=== PATIENT | male | born 1970 | race Caucasian/White ===

== ENCOUNTER → 2018-01-28 15:12 | Outpatient (CLI) | payer OTHER, SELFPAY ==
--- NOTE | 2018-01-28 | DI.RAD.S_ITS ---
PROCEDURE: XR ELBOW RT 2V INDICATIONS: PAIN IN RT ELBOW TECHNIQUE: 3 views of the elbow were acquired. COMPARISON: None. FINDINGS: Bones: No fractures or dislocations. No suspicious bony lesions. Soft tissues: No elbow joint effusion. No suspicious soft tissue calcifications. IMPRESSION: Unremarkable radiographic examination of right elbow. Dictated by: Tony Buck M.D. on 01/28/2018 at 16:23 Approved by: Tony Buck M.D. on 01/28/2018 at 16:23
== END ==
PROVIDERS: PCP Family Medicine; Visit Provider Family Medicine
DX: M25.521 Pain in right elbow (principal)
CPT/HCPCS: 73070

== ENCOUNTER → 2020-09-15 11:23 | Outpatient (CLI) | payer OTHER, SELFPAY ==
[2020-09-15 13:16] LABS: COVID19 -Nasal RAPID Negative (Negative)
== END ==
PROVIDERS: PCP Student in an Organized Health Care Education/Training Program; Visit Provider Physician Assistant
DX: Z01.812 Encounter for preprocedural laboratory examination (principal); Z20.822 Contact with and (suspected) exposure to COVID-19
CPT/HCPCS: 87635

== ENCOUNTER 2020-09-17 12:32 | Day surgery (SDC) | payer OTHER, SELFPAY ==
[2020-09-17] VITALS (10 sets, daily range): BP systolic 103–118; BP diastolic 69–78; PULSE 56–76; RESP 10–16; TEMP 36.2–37; O2SAT 92–96; BMI 28.6
--- NOTE | 2020-09-17 | PATH_ITS ---
[facility] Accession Number: [id number] . 01 Material submitted: . PART A: duodenum - DUODENAL PART B: gastrointestinal site - ANTRUM PART C: gastrointestinal site - FUNDUS PART D: gastrointestinal site - BODY BIOPSY PART E: esophagus, E-G Junction - GE JUNCTION @12 OCLOCK PART F: esophagus, E-G Junction - GE JUNCTION 6 OCLOCK PART G: esophagus, E-G Junction - GE JUNCTION 9 OCLOCK PART H: esophagus, E-G Junction - GE JUNCTION 3 OCLOCK PART I: colon - TRANSVERSE COLON 2MM POLYP . 02 Diagnosis: A. Duodenum, Biopsy: Duodenal mucosa with no diagnostic abnormality. Negative for active inflammation, features of sprue, dysplasia, or malignancy. . B. Stomach, Antrum, Biopsy: Antral mucosa with no diagnostic abnormality. Negative for Helicobacter by immunohistochemistry. Negative for intestinal metaplasia. Negative for dysplasia and malignancy. . C. Stomach, Fundus, Biopsy: Body-type mucosa with no diagnostic abnormality. Negative for Helicobacter by immunohistochemistry. Negative for intestinal metaplasia. Negative for dysplasia and malignancy. . D. Stomach, Body, Biopsy: Body-type mucosa with no diagnostic abnormality. No evidence of Helicobacter on H/E stain. Negative for intestinal metaplasia. Negative for dysplasia and malignancy. . E. Gastroesophageal Junction, 12 o'clock, Biopsy: Squamous epithelium with no diagnostic abnormality. Intraepithelial eosinophils are not increased. Negative for dysplasia and malignancy. . F. Gastroesophageal Junction, 6 o'clock, Biopsy: Squamous and columnar mucosa with no diagnostic abnormality. Negative for intestinal metaplasia by alcian blue stain. Negative for dysplasia and malignancy. . G. Gastroesophageal Junction, 9 o'clock, Biopsy: Columnar mucosa with mild chronic inflammation. Negative for intestinal metaplasia by alcian blue stain. Negative for dysplasia and malignancy. . H. Gastroesophageal Junction, 3 o'clock, Biopsy: Squamous mucosa with no diagnostic abnormality. Intraepithelial eosinophils are not increased. Negative for dysplasia and malignancy. . I. Transverse Colon, Polyp 2 mm, Biopsy: Colonic mucosa with a small benign lymphoid aggregate and no other significant diagnostic abnormality. Additional levels were examined. Negative for dysplasia and malignancy. MRV 09/23/2020 1431 Local . 02 Electronically signed: . Caitie Fajardo MD, Pathologist NPI- [id number] . 01 Gross description: . Part A: DUODENAL: Received in formalin is 1 fragment(s) of schaefer, soft tissue measuring 0.4 x 0.2 x 0.1 cm submitted entirely in 1 cassette(s) Part B: ANTRUM: Received in formalin are 2 fragment(s) of schaefer, soft tissue measuring 0.4 x 0.2 x 0.1 cm to 0.3 x 0.2 x 0.1 cm submitted entirely in 1 cassette(s) Part C: FUNDUS: Received in formalin are 2 fragment(s) of schaefer, soft tissue measuring 0.5 x 0.2 x 0.1 cm to 0.3 x 0.3 x 0.2 cm submitted entirely in 1 cassette(s) Part D: BODY BIOPSY: Received in formalin is 1 fragment(s) of schaefer, soft tissue measuring 0.3 x 0.3 x 0.2 cm submitted entirely in 1 cassette(s) Part E: GE JUNCTION @12 OCLOCK: Received in formalin is 1 fragment(s) of schaefer, soft tissue measuring 0.2 x 0.2 x 0.1 cm submitted entirely in 1 cassette(s) Part F: GE JUNCTION 6 OCLOCK: Received in formalin is 1 fragment(s) of schaefer, soft tissue measuring 0.4 x 0.2 x 0.1 cm submitted entirely in 1 cassette(s) Part G: GE JUNCTION 9 OCLOCK: Received in formalin is 1 fragment(s) of schaefer, soft tissue measuring 0.3 x 0.2 x 0.1 cm submitted entirely in 1 cassette(s) Part H: GE JUNCTION 3 OCLOCK: Received in formalin is 1 fragment(s) of schaefer, soft tissue measuring 0.5 x 0.3 x 0.1 cm submitted entirely in 1 cassette(s) Part I: TRANSVERSE COLON 2MM POLYP: Received in formalin is 1 fragment(s) of schaefer, soft tissue measuring 1.0 x 0.3 x 0.1 cm submitted entirely in 1 cassette(s) /QBJ 09/18/2020 0510 Local . 02 Microscopic: . B-C: Immunohistochemical stains were performed on blocks B and C in order to evaluate for Helicobacter organisms, and are both negative. The control stain showed appropriate reactivity. . F-G: AB/PAS stains were performed on blocks F and G in order to evaluate for intestinal metaplasia, and are both negative. The control stain showed appropriate reactivity. . * This test was developed and its performance characteristics determined by [employer]. It has not been cleared or approved by the U.S. Food and Drug Administration. The FDA has determined that such clearance or approval is not necessary. This test is used for clinical purposes. It should not be regarded as investigational or for research. . 02 Pathologist provided ICD-10: R10.13 . 02 CPT . 534479, 718925, 336002, 750873, 626125, 303274, 453543, 775398, 907996, [id number], 869592, 755996 Performed at: 01 [facility] [address] [id number] MD Connor Pires MD Phone: [phone] Performed at: 02 [facility] [address] [place] [id number] MD Caitie Fajardo MD Phone: [phone]
--- NOTE | 2020-09-17 09:33 | PM.PREOP ---
Pre-operative Note COVID-19 COVID-19 status: Negative Result date/Date tested (Pos, Neg/Pending): 09/15/20 Interval Note History & Physical reviewed/Exam performed by Physician: Yes Changes to H&P: No ASA Class (for procedural sedation): II
--- NOTE | 2020-09-17 09:34 | P.OP.ENDO_ITS ---
Operative Date/Time/Diagnoses Date of procedure: 09/17/20 Procedure Notes Procedure in detail: ENDOSCOPIST: Tabitha Sky MD Sedation RN: Moisés Esteves RN Sedation start time: 3:10 p.m. Sedation end time: 3:37 p.m. PROCEDURE: EGD with biopsy INDICATIONS: 1. Abdominal pain, left lower quadrant 2. GERD MEDICATION: Incremental doses of Versed and fentanyl until an appropriate level of sedation was achieved. ASA Ratin DURATION OF PROCEDURE: 10 minutes. COMPLICATIONS: None. LIMITATIONS: None EXTENT OF PROCEDURE: Third portion of the Duodenum. PROCEDURE: The high-definition gastroduodenoscope was introduced into the posterior oropharynx under direct vision after Hurricaine spray, noted IV sedation, and proper informed consent. The esophagus was identified and intubated under direct visualization. The scope was quickly passed through the esophagus and into the fundus of the stomach. A clear fundal pool was aspirated. The scope was then advanced to the antrum and the pylorus was identified. The scope was passed through the pylorus into the second and third portions of the duodenum. No abnormalities were noted in the duodenum, duodenal bulb or pyloric channel. Random biopsies taken x2. The antrum has superficial hyperemesis, random biopsy taken x2. J maneuver was produced. No abnormalities were noted of the proximal body, fundus or cardia. No hiatal hernia was noted. Random biopsy taken x2. Scope was broken out of the J maneuver and the remainder of the stomach was carefully inspected upon withdrawal and was normal. The stomach was carefully deflated of all air on withdrawal. The distal esophagus was carefully inspected and Z-line was noted to be irregular, 4 quadrant biopsies taken. Top of the gastric folds noted at 40 cm from the incisors; circumferential extent of the metaplasia was 39 cm from the incisors; maximal ex tent of the metaplasia was 38 cm from the incisors. The remainder of the esophagus was normal upon withdrawal. The larynx and vocal cords appeared to be unremarkable. IMPRESSION: 1. Superficial hyperemesis, antrum 2. Endoscopically suspected esophageal mucosa, C1M2 PLAN: 1. Follow-up in clinic status post pathology results. The possibility of missed lesion including a malignancy was discussed prior with the patient. Potential alarm symptoms have been discussed and should be reported by the patient immediately.
--- NOTE | 2020-09-17 09:34 | PM.OP.ENDO ---
Operative Date/Time/Diagnoses Date of procedure: 09/17/20 Procedure Notes SCOAP/Timeout: 3:09 p.m. Procedure in detail: ENDOSCOPIST: Tabitha Sky MD Sedation RN: Moisés Esteves RN Sedation start time: 3:40 p.m. Sedation end time: 3:56 p.m. PROCEDURE: Colonoscopy with biopsy INDICATIONS: 1. Abdominal pain, LLQ 2. Screening for colon cancer MEDICATION: Levsin 0.125 mg sublingual, incremental doses of Versed and fentanyl until appropriate level sedation achieved. ASA CLASS: 2 CECAL WITHDRAWAL TIME: 9 minutes COMPLICATIONS: None. EXTENT OF PROCEDURE: Cecum. QUALITY OF PREP: Good with portions of liquid stool. PROCEDURE: Prior to insertion of the colonoscope, a digital rectal examination was accomplished with circumferential palpation of the distal rectal mucosa without significant findings being noted. The high-definition colonoscope was passed into the rectum in the usual fashion and advanced over to the cecum without difficulty. The ileocecal valve, appendiceal stoma, and medial wall all could be inspected and no abnormalities were seen. ASCENDING COLON: As the colonoscope was withdrawn, care was taken to expose and inspect the haustral folds and no abnormalities were seen. HEPATIC FLEXURE: Normal, no polyps, diverticula or other abnormalities. TRANSVERSE COLON: 2 mm polyp removed with cold biopsy forceps. Otherwise, normal, no diverticula or other abnormalities. DESCENDING COLON: Minor diverticulosis, otherwise, normal, no polyps or other abnormalities. SIGMOID COLON: Minor diverticulosis, otherwise, normal, no polyps or other abnormalities. RECTUM: Normal. J maneuver was produced. There was no significant perianal disease. The J maneuver was broken. The remainder of the rectum was inspected and there was no external hemorrhoid disease. The scope was withdrawn. IMPRESSION: 1. Transverse polyp x1, 2 mm, removed with cold biopsy forceps 2. Minor diverticulosis, left-sided PLAN: 1. Follow-up in clinic status post pathology results. The possibility of a missed lesion including a malignancy has been discussed with the patient previously. Potential alarm symptoms have been discussed and should be reported immediately.
[2020-09-17] MEDS: LACTATED RINGERS 1,000 ML 200 ML IV ×2 (13:14→15:05)
[2020-09-17] MEDS: HYOSCYAMINE 0.125 MG TABLET PO (13:14)
[2020-09-17] MEDS: LIDOCAINE 4% SOLN 50 ML 20 ML TOP (15:06)
[2020-09-17] MEDS: fentaNYL 250 MCG/5 ML INJ IV (15:07)
[2020-09-17] MEDS: LIDOCAINE JELLY 2% 5 ML 1 APPLIC TOP (15:07)
[2020-09-17] MEDS: MIDAZOLAM 5 MG/5 ML VIAL IV (15:08)
--- NOTE | 2020-09-17 17:17 | SUR.PHASEII ---
Pt from [facility] alert, denies pain. Ponce liquids. DC to home with after DC teaching reviewed.
== END 2020-09-17 17:09 | disposition home or self-care (01) ==
PROVIDERS: PCP Student in an Organized Health Care Education/Training Program; Referring Provider Student in an Organized Health Care Education/Training Program; Visit Provider Student in an Organized Health Care Education/Training Program
PROC: 0DJ08ZZ Inspection of Upper Intestinal Tract, Via Natural or Artificial Opening Endoscopic (ICD-10-PCS; CPT 43235; 2020-09-17 13:45)
PROC: 0DJD8ZZ Inspection of Lower Intestinal Tract, Via Natural or Artificial Opening Endoscopic (ICD-10-PCS; CPT 45378; 2020-09-17 13:45)
DX: R10.32 Left lower quadrant pain (principal); E66.9 Obesity, unspecified; E03.9 Hypothyroidism, unspecified; E78.2 Mixed hyperlipidemia; K57.30 Diverticulosis of large intestine without perforation or abscess without bleeding; K21.00 Gastro-esophageal reflux disease with esophagitis, without bleeding
CPT/HCPCS: 45380; 43239; J2250; J3010

== ENCOUNTER → 2021-03-21 12:48 | Outpatient (CLI) | payer OTHER, SELFPAY ==
--- NOTE | 2021-03-21 12:50 | DI.RAD.S_ITS ---
PROCEDURE: XR ELBOW LT MIN 3V INDICATIONS: fall TECHNIQUE: 3 views of the elbow were acquired. COMPARISON: None. FINDINGS: Bones: There is a subtle nondisplaced radial head fracture noted resulting in large joint effusion elevating the anterior humeral fat pad. Soft tissues: As above. Soft tissue swelling without foreign body. IMPRESSION: Nondisplaced radial head fracture and large joint effusion. Approved by: Anthony Cook M.D. on 03/21/2021 at 12:06
== END ==
PROVIDERS: PCP Family Medicine; Referring Provider Nurse Practitioner Family; Visit Provider Nurse Practitioner Family
DX: S52.125A Nondisplaced fracture of head of left radius, initial encounter for closed fracture (principal); M25.522 Pain in left elbow; M25.422 Effusion, left elbow; W19.XXXA Unspecified fall, initial encounter
CPT/HCPCS: 73080

== ENCOUNTER → 2022-06-20 11:46 | Outpatient (CLI) | payer OTHER, SELFPAY ==
--- NOTE | 2022-06-20 | DI.RAD.S_ITS ---
PROCEDURE: XR KNEE RT 3V INDICATIONS: PAIN IN RIGHT KNEE TECHNIQUE: 3 views of the knee were acquired. COMPARISON: None. FINDINGS: Bones: No fractures or dislocations. Mild tricompartmental osteoarthritis is seen with joint space narrowing, subchondral sclerosis and small marginal osteophyte formation. No suspicious bony lesions. Soft tissues: No significant joint effusion. No suspicious soft tissue calcifications. IMPRESSION: Mild tricompartmental osteoarthritis in right knee. No fracture or dislocation. No significant joint effusion. Dictated by: Tony Buck M.D. on 06/20/2022 at 13:38 Approved by: Tony Buck M.D. on 06/20/2022 at 13:38
== END ==
PROVIDERS: PCP Family Medicine; Referring Provider Family Medicine; Visit Provider Family Medicine
DX: M25.561 Pain in right knee (principal); M17.11 Unilateral primary osteoarthritis, right knee
CPT/HCPCS: 73562

== ENCOUNTER 2025-01-03 17:10 | Emergency (ER) | payer OTHER, SELFPAY ==
[2025-01-03 17:17] VITALS: BP 140/92; PULSE 96; RESP 18; TEMP 36.7; O2SAT 93; BMI 28.1
--- NOTE | 2025-01-03 17:24 | DI.RAD.S_ITS ---
PROCEDURE: XR FOREARM LT 2V INDICATIONS: lacerations TECHNIQUE: 2 views of the forearm were acquired. COMPARISON: None. FINDINGS: Bones: No fractures or dislocations. No suspicious bony lesions. Soft tissues: No suspicious soft tissue calcifications or masses. IMPRESSION: No acute bony abnormality. Approved by: Anthony Cook M.D. on 01/03/2025 at 17:02
--- NOTE | 2025-01-03 17:31 | ED.WOUNDLAC ---
HPI - Wound/Laceration <Jennifer Awad PA-C - Last Filed: 01/03/25 18:59> General Chief Complaint: Wound/Laceration Stated Complaint: injury left arm Time Seen by Provider: 01/03/25 17:30 Source: patient Mode of arrival: Ambulatory History of Present Illness HPI narrative: This is a 54 year old Right handed male presenting with concern for accidental injury/laceration to his left forearm sustained at work just [employer] at ER from a utility knife. 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 He was using a utility knife in his right hand, cutting a piece of sewage hose (macerator hose) on the boat and pulling the knife towards him as he was cutting when the knife slipped and sliced into his left forearm. He states that it did bleed quite a bit initially, he put some adjacent rags on it that he had access to but that he feels were likely not clean and applied pressure on it and walked up the dock. The front office medical assistant at his job secured it and put tape around it to control the bleeding--he advised his boss of his injury and came to the ER for further evaluation. He endorses a burning type pain right at the site of the injury. He denies numbness or tingling of the extremity and says he feels he can move everything well. He believes that the blade on the knife was relatively new but he is confident that the hose he was cutting was extremely full of germs--he had already cut sewage piping with this utility knife prior to the injury. He denies any other injuries complaints or concerns. Related Data Home Medications ?Medication ?Instructions ?Recorded ?Confirmed acetaminophen 325 mg tablet 650 mg PO Q6H PRN Pain (Scale 09/17/20 10/17/23 Score 1-3) loratadine 5 mg disintegrating 5 mg PO DAILY PRN Allergic Symptoms 09/17/20 10/17/23 tablet (Claritin RediTabs) omeprazole 20 mg capsule,delayed 20 mg PO DAILY 09/17/20 10/17/23 release sertraline 100 mg tablet 100 mg PO DAILY 09/17/20 10/17/23 Previous Rx's ?Medication ?Instructions ?Recorded amoxicillin 875 mg-potassium 1 tab PO Q12H contaminated 01/03/25 clavulanate 125 mg tablet lac/puncture wound prophylaxis 7 days #14 tabs Allergies Allergy/AdvReac Type Severity Reaction Status Date / Time No Known Drug Allergies Allergy Verified 10/17/23 11:17 Review of Systems <Jennifer Awad PA-C - Last Filed: 01/03/25 18:59> Review of Systems Narrative: See HPI Patient History <Jennifer Awad PA-C - Last Filed: 01/03/25 18:59> Medical History Depression GERD (gastroesophageal reflux disease) Social History household members: spouse Smoking Status: Current some day smoker Smoking Status: Current some day smoker tobacco type: cigarettes alcohol intake frequency: a few times a week Exam <Jennifer Awad PA-C - Last Filed: 01/03/25 18:59> Narrative Exam Narrative: GENERAL: [54] year old patient appears stated age. Well-developed patient, in mild distress. HEAD: Atraumatic. Normocephalic. EYES: Pupils equal round and reactive. Extraocular motions intact. No scleral icterus. No injection or drainage. ENT: Nose without bleeding, purulent drainage. Airway patent. NECK: Trachea midline. CARDIOVASCULAR: Regular rate and rhythm without murmurs, gallops, or rubs. RESPIRATORY: No increased WOB or respiratory distress EXTREMITIES: On the patient's left anterior mid-low forearm there is a full-thickness linear horizontal 2 cm laceration with exposure of fatty tissue. Lac is slightly curvilinear/flap-like. Range of motion of the affected wrist forearm and hand/fingers is intact. Strength is intact at the wrist and of the fingers with flexion and extension and finger opposition. There is no tenderness distal or proximal to the wound. Bleeding is controlled without direct pressure. Cap refill of the affected extremities less than 2 seconds skin is well perfused and pink. NEURO: AOx3. SKIN: No rash or erythema of visible areas Initial Vital Signs Initial Vital Signs: Vital Signs Temperature 98.0 F 01/03/25 17:17 Pulse Rate 96 H 01/03/25 17:17 Respiratory Rate 18 01/03/25 17:17 Blood Pressure 140/92 H 01/03/25 17:17 Pulse Oximetry 93 01/03/25 17:17 Oxygen Delivery Method Room Air 01/03/25 17:17 <Taniya Carrero MD - Last Filed: 01/03/25 19:33> Initial Vital Signs Initial Vital Signs: Vital Signs Temperature 98.0 F 01/03/25 17:17 Pulse Rate 96 H 01/03/25 17:17 Respiratory Rate 18 01/03/25 17:17 Blood Pressure 140/92 H 01/03/25 17:17 Pulse Oximetry 93 01/03/25 17:17 Oxygen Delivery Method Room Air 01/03/25 17:17 Procedures <Jennifer Awad PA-C - Last Filed: 01/03/25 18:59> Laceration Repair Laceration 1: Time of procedure: 18:11 Site: upper extremity Size (cm): 2 Description: linear and flap (Lateral slice/slightly curvilinear) Depth: simple, single layer (full thickness, fat layer exposed; no visible damage to deep structures) Local Anesthetic: lidocaine 1% and with epi Amount of anesthesia used (mL): 3 Pre-repair: wound explored and irrigated extensively (chlorhexidine warm water scrub and wash then 1L sterile water pressure irrigation) Skin layer closed with: nylon Skin layer suture size: 5-0 Number of sutures: 3 Technique: horizontal mattress Course <Jennifer Awad PA-C - Last Filed: 01/03/25 18:59> Orders Ordered: ED Orders 01/03/25 17:24 XR forearm LT 2V Stat Discontinued Medications Acetaminophen (Acetaminophen 325 Mg Tablet) 975 mg PO NOW ONE Stop: 01/03/25 17:31 Last Admin: 01/03/25 17:35 Dose: 975 mg Documented By: EMELI Amoxicillin/Clavulanate Potassium (Amoxicillin/Clav 875/125 Mg) 1 tab PO NOW ONE Stop: 01/03/25 18:36 Last Admin: 01/03/25 18:38 Dose: 1 tab Documented By: EMELI Bacitracin (Bacitracin Oint 0.9 Gm Pckt) 1 applic TOP NOW ONE Stop: 01/03/25 18:30 Last Admin: 01/03/25 18:36 Dose: 1 applic Documented By: EMELI Diphtheria/Tetanus/Acell Pertussis (Tet,Diph,Pertuss(Acell),Vac/Pf 0.5 Ml Syringe) 0.5 ml IM .ONCE ONE Stop: 01/03/25 17:31 Last Admin: 01/03/25 17:35 Dose: 0.5 ml Documented By: EMELI Lidocaine/Epinephrine (Lidocaine 1% W/Epi 10ml) 5 ml SUBCUT NOW ONE Stop: 01/03/25 17:31 Last Admin: 01/03/25 17:35 Dose: 5 ml Documented By: RL Vital Signs Vital signs: Vital Signs - 8 hr 01/03/25 17:17 01/03/25 18:41 Temperature 98.0 F Pulse Rate 96 H 73 Respiratory Rate 18 16 Blood Pressure 140/92 H 144/82 H Pulse Oximetry 93 97 Oxygen Delivery Method Room Air Room Air <Taniya Carrero MD - Last Filed: 01/03/25 19:33> Orders Ordered: ED Orders 01/03/25 17:24 XR forearm LT 2V Stat Discontinued Medications Acetaminophen (Acetaminophen 325 Mg Tablet) 975 mg PO NOW ONE Stop: 01/03/25 17:31 Last Admin: 01/03/25 17:35 Dose: 975 mg Documented By: EMELI Amoxicillin/Clavulanate Potassium (Amoxicillin/Clav 875/125 Mg) 1 tab PO NOW ONE Stop: 01/03/25 18:36 Last Admin: 01/03/25 18:38 Dose: 1 tab Documented By: EMELI Bacitracin (Bacitracin Oint 0.9 Gm Pckt) 1 applic TOP NOW ONE Stop: 01/03/25 18:30 Last Admin: 01/03/25 18:36 Dose: 1 applic Documented By: EMELI Diphtheria/Tetanus/Acell Pertussis (Tet,Diph,Pertuss(Acell),Vac/Pf 0.5 Ml Syringe) 0.5 ml IM .ONCE ONE Stop: 01/03/25 17:31 Last Admin: 01/03/25 17:35 Dose: 0.5 ml Documented By: EMELI Lidocaine/Epinephrine (Lidocaine 1% W/Epi 10ml) 5 ml SUBCUT NOW ONE Stop: 01/03/25 17:31 Last Admin: 01/03/25 17:35 Dose: 5 ml Documented By: RL Vital Signs Vital signs: Vital Signs - 8 hr 01/03/25 17:17 01/03/25 18:41 Temperature 98.0 F Pulse Rate 96 H 73 Respiratory Rate 18 16 Blood Pressure 140/92 H 144/82 H Pulse Oximetry 93 97 Oxygen Delivery Method Room Air Room Air MDM - Wound/Laceration <Jennifer Awad PA-C - Last Filed: 01/03/25 18:59> Differential Diagnosis Differential diagnosis: Likely laceration and other (Work-related injury) Medical Records Attestation: I reviewed the patient's medical records. Imaging Data Extremity x-ray #1: My Impression: Agree with Radiology interpretation Radiologist's Impression: [address] [address] XRay Report Signed Patient: Trent Harrington MR#: [id number] : 1970 Acct:[id number] Age/Sex: 54 / M Date of Service: 01/03/25 Loc: ED Accession Number: [id number] Procedure: XR forearm LT 2V Ordering Provider: Taniya Carrero MD PROCEDURE: XR FOREARM LT 2V INDICATIONS: lacerations TECHNIQUE: 2 views of the forearm were acquired. COMPARISON: None. FINDINGS: Bones: No fractures or dislocations. No suspicious bony lesions. Soft tissues: No suspicious soft tissue calcifications or masses. IMPRESSION: No acute bony abnormality. Approved by: Anthony Cook M.D. on 01/03/2025 at 17:02 [facility] Narrative Medical decision making narrative: This is a 54-year-old male, smoker who drinks alcohol every day presenting with concern for a work injury accidentally lacerated his left forearm today with a utility knife while he was cutting through a sewage hose on a boat at work. Patient's range of motion and strength are intact in the affected extremity. X-rays obtained given potential depth of the injury. Tdap updated today. L and I paperwork and activity prescription form completed during the patient's visit L and [id number] Patient's wound was irrigated extensively and repaired as above in procedures. Given that he was cutting sewage pipe and this wound is a laceration/puncture with the utility knife did prescribe antibiotics for prophylaxis. 7 day course of augmantin with 1st dose provided in the ED as local pharmacies closed at this hour on weekend. Advised regarding return precautions, monitoring for signs of infection. Activity prescription form with note for light duty as needed until patient has his sutures removed. Patient does plan to return to work tomorrow which I think is reasonable. Recommend Tylenol, ibuprofen for pain. Return precautions provided, follow up plan discussed, all questions answered. Discharge Plan Departure Patient Disposition: Home Clinical Impression: Work related injury Laceration of forearm, left Qualifiers: Encounter type: initial encounter Qualified Code(s): S51.812A - Laceration without foreign body of left forearm, initial encounter Activity Restrictions/Additional Instructions: *You have been diagnosed with [laceration to left forearm, work injury] *What to do: *Please continue to take your regular medications as directed. [1 ] New medication prescriptions sent to your pharmacy: [Augmentin] [ ] New medication written as a paper prescription [ ] No new medications given *Please follow up with your primary care provider in 2-3 days, call for an appointment. Let them know you were seen in the Emergency Department and that we ask that you be seen in follow up. We will electronically transmit a record of today's note if your PCP is in our system. You came in today with a laceration to her left forearm sustained from a utility knife at work on the job today. We washed this out with surgical soap and warm water as well as a high pressure sterile water flush before repairing it with sutures. You can have your sutures removed in 7-10 days sometime between January 09 and January 12. Please monitor for signs of infection however given the nature of her injury with sewage pipe involved, I did go ahead and prescribe antibiotics as prophylaxis. You received your 1st dose today in the emergency department. 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 Your function seems to be intact based on exam and examination of the wound does not suggest that you have done damage to any of your tendons. Also your x-ray did look good as well. That said if you do start having increasing pain or swelling, redness, heat, or pain above the site of your injury please make sure you seek re-evaluation. Your L and I paperwork and activity prescription form were completed today [place] [id number]. You will need to bring the copy of the activity prescription form to your employer. I have requested that you be on light duty as needed through January 09 to (whenever you have your sutures removed.) *If you do not have a primary care provider please contact the [facility] Resource line at [phone]. They will ask some questions about your medical history and help get you set up with a doctor in the community. *Return to Emergency Department if you should have any new, worsening or concerning symptoms, such as [fever greater than 101 F, shaking chills, worsening pain, persistent vomiting or other bothersome symptoms] Prescriptions: New amoxicillin-pot clavulanate 875-125 mg tablet 1 tab PO Q12H 7 Days Qty: 14 0RF No Action sertraline 100 mg tablet 100 mg PO DAILY omeprazole 20 mg Capsule,Delayed Release(Dr/Ec) 20 mg PO DAILY Claritin RediTabs 5 mg Tablet,Disintegrating 5 mg PO DAILY PRN (Reason: Allergic Symptoms) acetaminophen 325 mg Tablet 650 mg PO Q6H PRN (Reason: Pain (Scale Score 1-3)) Referrals: Alejandro Sotomayor MD [Primary Care Provider, Family Practice] Stand Alone Forms: Patient Portal/API ED Sign-out <Taniya Carrero MD - Last Filed: 01/03/25 19:33> [facility] I was immediately available in the department for consultation throughout this patient's visit. Taniya Carrero MD
[2025-01-03] MEDS: LIDOCAINE 1% W/EPI 10ML 5 ML SUBCUT (17:35)
[2025-01-03] MEDS: TET,DIPH,PERTUSS(ACELL),VAC/PF 0.5 ML SYRINGE IM (17:35)
[2025-01-03] MEDS: ACETAMINOPHEN 325 MG TABLET 975 MG PO (17:35)
--- NOTE | 2025-01-03 18:10 | PC.NURSE ---
Pt changing septic/utility hose on boat and cut left forearm with knife accidentally. 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 2cm well approximated laceration on left forearm. C/o 2/10 pain. Full ROM in left hand/arm. Wound cleaned with chlorhexidine soap & flushed with sterile water. A&Ox4.
[2025-01-03] MEDS: BACITRACIN OINT 0.9 GM PCKT 1 APPLIC TOP (18:36)
[2025-01-03] MEDS: AMOXICILLIN/CLAV 875/125 MG 1 TAB PO (18:38)
[2025-01-03 18:41] VITALS: BP 144/82; PULSE 73; RESP 16; O2SAT 97
== END 2025-01-03 18:49 | disposition home or self-care (01) ==
PROVIDERS: Emergency Provider Student in an Organized Health Care Education/Training Program; PCP Family Medicine
DX: S51.812A Laceration without foreign body of left forearm, initial encounter (principal); W26.0XXA Contact with knife, initial encounter; Y93.89 Activity, other specified; Y99.0 Civilian activity done for income or pay; Z23 Encounter for immunization
CPT/HCPCS: 12001; 73090; 90471; 99284; 90715